=== PATIENT | female | born 1935 | race Caucasian/White ===

== ENCOUNTER → 2016-12-20 | Outpatient (CLI) | payer MEDICARE, BC, MEDICAID ==
[~2016-12-20] MED LIST: ALBUTEROL2.5 MG/3 M INH; ATROPINE SULFATE2 ML SL; CEFTRIAXONE1 GM; CLARITIN 1MG/1 MG/ML PEG; DITROPAN DP5 MG/5 ML; DITROPAN DP5 MG/5 ML PEG; DULCOLAX10 MG R; DULCOLAX5 MG; DURAGESIC 25MC25 MCG; DURAGESIC 50MC50 MCG TRANS; HEPARIN 1,1000 UNIT/; JEVITY 1.51 CAN PEG; KLOR CON PEG; LEVOTHROID (SY25 MCG; LEVOTHROID(SYN75 MCG PEG; LODOSYN25 MG; LORATADINE1 GM; NEUTRA-PHOS (PHO1 EA; NORCO 10-325 T1 EACH; NORCO 10-325 T1 EACH PEG; NYSTATIN1 EAC1 TOP; NYSTOP POWD60 GM/BOT; OMEPRAZOLE40 MG PEG; OXACILLIN; OXACILLIN IV; PRILOSEC10 MG; PRO-STAT AWC L887 ML PEG; PROVENTIL OR V6.7 GM; REQUIP0.25 MG; REQUIP1 MG PEG; SINEMET 25-1001 EACH PEG; TYLENOL LI160 MG/5 M; TYLENOL325 MG PEG; UTI-STAT L3875 MG/30; UTI-STAT L3875 MG/30 PEG; [UNRECOGNIZED DRUG - OTHER]
[2016-12-20 12:47] LABS: BASOPHIL # 0.1 K/uL (0.0-0.2); BASOPHIL % 0.6 %; EOSINOPHIL # 0.3 K/uL (0.0-0.5); HEMATOCRIT 45.8 % (30.0-46.0); HEMOGLOBIN 14.3 g/dL (10.0-15.0); IMMATURE GRANULOCYTE % 0.4 %; LYMPHOCYTE # 3.3 K/uL (0.8-4.0); LYMPHOCYTE % 39.6 %; MCH 26.1 pg (27.0-34.0); MCHC 31.2 gm/dL (32.0-36.5); MCV 83.7 fl (83.0-98.0); MONOCYTE # 0.7 K/uL (0.0-1.0); MONOCYTE % 8.4 %; MPV 11.6 fl (9.4-12.4); NRBC % 0 /100WBC (0-0.00); PLATELET COUNT 215 K/uL (150-450); RBC 5.47 M/uL (3.00-5.00); RDW-CV 15.1 % (11.9-14.6); WBC 8.2 K/uL (4.0-11.0)
[2016-12-20 13:02] LABS: ALK PHOS 137 IU/L (33-138); BLOOD UREA NITROGEN 17 mg/dL (6-24); CALCIUM 7.9 mg/dL (8.5-10.5); CHLORIDE 101 mMol/L (96-110); CO2 23 mMol/L (22-32); CREATININE 0.4 mg/dL (0.5-1.1); ESTIMATED GFR (MDRD EQUATION) > 60; SODIUM 136 mMol/L (135-145); TOTAL BILIRUBIN 0.4 mg/dL (0.0-1.5); TOTAL PROTEIN 5.6 g/dL (6.0-8.4)
[2016-12-20 13:03] LABS: ALT < 10 IU/L (12-78); ANION GAP 16.8 (10.0-19.0); AST 26 IU/L (10-40); POTASSIUM 4.8 mMol/L (3.7-5.1)
== END | disposition disaster alternative care site (69) ==
PROVIDERS: Family Medicine
DX: G21.8 Other secondary parkinsonism (principal); E78.4 Other hyperlipidemia; R62.7 Adult failure to thrive

== ENCOUNTER → 2017-03-05 | Day surgery (SDC) | payer MEDICARE, BC, MEDICAID ==
--- NOTE | 2017-03-05 14:40 | NUR ---
1130, PT HERE FOR PICC PLACEMENT, NON VERBAL, HERE, STATES IV INFILTRATED RT UPPER ARM YESTERDAY AT THE [facility], RT UPPER ARE RED SWOLLEN, ENCOURAGE TO HAVE THE FAMILY DR CALLED ABOUT HER ARM, PHARMACY CALLED, ABOUT THE INFILTRATE, NO NEW ORDERS
== END ==
LOC: GPOC 03-04 17:00 → GSDC 12:04
PROC: 02HV33Z Insertion of Infusion Device into Superior Vena Cava, Percutaneous Approach (ICD-10-PCS; principal; 2017-03-05)
DX: T85.731A Infection and inflammatory reaction due to implanted electronic neurostimulator of brain, electrode (lead), initial encounter (principal); N39.0 Urinary tract infection, site not specified; E03.9 Hypothyroidism, unspecified; G20 Parkinson's disease; F03.90 Unspecified dementia, unspecified severity, without behavioral disturbance, psychotic disturbance, mood disturbance, and anxiety; K21.9 Gastro-esophageal reflux disease without esophagitis; Z98.890 Other specified postprocedural states
CPT/HCPCS: C1751